=== PATIENT | female | born 1990 | race African-American/Black ===

== ENCOUNTER → 2023-06-11 | Emergency (ER) | payer BC, MEDICAID ==
[~2023-06-11] VITALS: Ht 157.5 cm; Wt 75.0 kg
[~2023-06-11] MED LIST: HYDROcodone-ACET 10/325MG TAB PO ONE; levETIRAcetam 1000 mg/100ml 100 ML IV ONE
[2023-06-11 12:30] LABS: Basophils # (auto) 0.1 10 ^3/uL (0-0.2); Basophils % (auto) 0.9 % (0.0-2.0); Eosinophils # (auto) 0 10 ^3/uL (0-0.8); Eosinophils % (auto) 0.5 % (0.0-7.0); Hematocrit 41.9 % (36.0-46.0); Hemoglobin 13.9 g/dL (12.2-16.2); Lymphocytes # (auto) 2.2 10 ^3/uL (0.4-5.4); Lymphocytes % (auto) 33.2 % (10.0-50.0); Mean Corpuscular Hemoglobin 30.9 pg (28.0-32.0); Mean Corpuscular Hgb Conc. 33.1 g/dL (32.0-36.0); Mean Corpuscular Volume 93.2 fL (80.0-100.0); Monocytes # (auto) 0.5 10 ^3/uL (0-1.3); Neutrophils # (auto) 3.9 10 ^3/uL (1.6-8.6); Neutrophils % (auto) 58.4 % (37.0-80.0); Nucleated Red Blood Cells % 0.2 %; Red Blood Cells 4.49 10^6/uL (4.0-5.20); White Blood Cell 6.6 10^3/uL (4.4-10.8)
[2023-06-11 13:30] LABS: Alanine Aminotransferase 13 U/L (7-40); Albumin 4.4 g/dL (3.2-4.8); Alkaline Phosphatase 110 U/L (46-116); Anion Gap 8 (5-15); Aspartate Aminotransferase 15 U/L (13-40); BUN/Creatinine Ratio 12.3 (10.0-20.0); Bilirubin, Total 0.4 mg/dL (0.2-1.0); Blood Urea Nitrogen 9 mg/dL (9-23); Calcium 9.5 mg/dL (8.5-10.1); Carbon Dioxide 22 mmol/L (20-30); Chloride 113 mmol/L (98-107); Glucose 96 mg/dL (74-106); Potassium 4.1 mmol/L (3.5-5.1); Sodium 143 mmol/L (136-145); Total Protein 7.1 g/dL (5.7-8.2)
[2023-06-11 15:00] VITALS: PULSE 57; RESP 17; O2SAT 96
[2023-06-11 15:54] LABS: Urine Bacteria NONE SEEN /hpf (None Seen); Urine Blood Negative /uL (Negative); Urine Clarity Clear (Clear); Urine Color Yellow (Yellow); Urine Mucus FEW (None Seen); Urine Protein, UAD Negative (Negative); Urine Urobilinogen Normal (Negative); Urine WBC 1 /hpf (0 - 5); Urine pH 5.5 (5.0-8.0)
[2023-06-11 18:07] VITALS: BP 106/66; PULSE 55; RESP 15; TEMP 98.1; O2SAT 98
== END | disposition short-term general hospital (02) ==
LOC: EDBD 11:44 → ER 11:44
DX: I61.8 Other nontraumatic intracerebral hemorrhage (principal)
CPT/HCPCS: 36415; 70450; 80053; 81001; 85025; 96365; 99285; J1953

== ENCOUNTER 2023-07-20 09:59 | Emergency (ER) | payer BC, MEDICAID ==
[~2023-07-20] VITALS: Ht 154.9 cm; Wt 72.7 kg
[2023-07-20 11:19] LABS: Basophils # (auto) 0 10 ^3/uL (0-0.2); Basophils % (auto) 0.6 % (0.0-2.0); Eosinophils # (auto) 0.1 10 ^3/uL (0-0.8); Eosinophils % (auto) 2.1 % (0.0-7.0); Hematocrit 40.1 % (36.0-46.0); Hemoglobin 13.2 g/dL (12.2-16.2); Lymphocytes # (auto) 1.9 10 ^3/uL (0.4-5.4); Lymphocytes % (auto) 35.7 % (10.0-50.0); Mean Corpuscular Hemoglobin 30.6 pg (28.0-32.0); Mean Corpuscular Hgb Conc. 32.8 g/dL (32.0-36.0); Mean Corpuscular Volume 93.3 fL (80.0-100.0); Monocytes # (auto) 0.4 10 ^3/uL (0-1.3); Monocytes % (auto) 8.3 % (0.0-12.0); Neutrophils # (auto) 2.9 10 ^3/uL (1.6-8.6); Neutrophils % (auto) 53.3 % (37.0-80.0); Red Cell Distribution Width 13.9 % (11.8-14.3); White Blood Cell 5.4 10^3/uL (4.4-10.8)
[2023-07-20] MEDS ORDERED: levETIRAcetam 500 mg/100ml 100 ML IV ONE (11:45)
[2023-07-20 11:46] LABS: Alanine Aminotransferase 10 U/L (7-40); Albumin 3.9 g/dL (3.2-4.8); Alkaline Phosphatase 97 U/L (46-116); Anion Gap 5 (5-15); Aspartate Aminotransferase 10 U/L (13-40); BUN/Creatinine Ratio 9.6 (10.0-20.0); Bilirubin, Total 0.4 mg/dL (0.2-1.0); Blood Urea Nitrogen 8 mg/dL (9-23); Calcium 8.6 mg/dL (8.5-10.1); Carbon Dioxide 22 mmol/L (20-30); Chloride 114 mmol/L (98-107); Glucose 98 mg/dL (74-106); Sodium 141 mmol/L (136-145)
[2023-07-20 11:47] LABS: Total Protein 6.2 g/dL (5.7-8.2)
[2023-07-20 12:00] VITALS: PULSE 46; RESP 18; O2SAT 100
[2023-07-20] MEDS ORDERED: SODIUM CHLORIDE 0.9% 1,000 ML IV ONE (13:30)
[2023-07-20 13:46] VITALS: BP 117/64
== END 2023-07-20 14:47 | disposition home or self-care (01) ==
LOC: ER 09:59 → EDBD 09:59 → ER 14:42
DX: G40.89 Other seizures (principal)
CPT/HCPCS: 36415; 80053; 85025; 96361; 96374; 99284; J1953; J7030

== ENCOUNTER 2023-08-02 10:26 | Emergency (ER) | payer BC, MEDICAID ==
[~2023-08-02] VITALS: Ht 157.5 cm; Wt 75.0 kg
[2023-08-02 10:30] VITALS: BP 128/82; PULSE 60; RESP 16; O2SAT 98
== END 2023-08-02 10:39 | disposition left against medical advice (07) ==
LOC: ER 10:26 → EDBD 10:26 → ER 10:39
DX: G40.909 Epilepsy, unspecified, not intractable, without status epilepticus (principal); I10 Essential (primary) hypertension